=== PATIENT | female | born 1970 | race Caucasian/White ===

== ENCOUNTER → 2018-04-20 | Outpatient (CLI) | payer OTHER ==
[~2018-04-20] MED LIST: ADDERALL 30 MG30 MG PO; ASPIRIN CHEWABL81 MG PO; CARAFATE1 GM PO; COUMADIN5 M2 PO; Coumadin7.5 MG PO; KLONOPIN1 M1 PO; LOVENOX120 MG/0.8 SQ; NORCO 5-325 TA1 EACH PO; PRINIVIL10 MG PO; PROTONIX40 MG PO; PROZAC40 M1 PO; REMERON SOLTAB30 MG PO; SIMVASTATIN40 MG PO; Synthroid,Lev200 MCG PO; TRAZODONE100 MG PO; XARE20MG PO
[2018-04-20 15:17] LABS: INTERNATIONAL NORM RATIO 1.8 (2.0-3.5)
== END | disposition home or self-care (01) ==
LOC: RESCLI 00:56
PROVIDERS: Internal Medicine
DX: I25.10 Atherosclerotic heart disease of native coronary artery without angina pectoris (principal); D68.59 Other primary thrombophilia; E03.9 Hypothyroidism, unspecified; G43.119 Migraine with aura, intractable, without status migrainosus; G47.00 Insomnia, unspecified; N39.3 Stress incontinence (female) (male); D50.9 Iron deficiency anemia, unspecified; I10 Essential (primary) hypertension; E78.5 Hyperlipidemia, unspecified; F32.9 Major depressive disorder, single episode, unspecified; F90.9 Attention-deficit hyperactivity disorder, unspecified type; F41.9 Anxiety disorder, unspecified; Z79.899 Other long term (current) drug therapy; Z86.711 Personal history of pulmonary embolism; Z79.01 Long term (current) use of anticoagulants; Z79.82 Long term (current) use of aspirin

== ENCOUNTER 2018-12-04 15:03 | Inpatient (IN) | payer OTHER ==
[~2018-12-04] VITALS: Ht 172.7 cm; Wt 143.0 kg
--- NOTE | ~2018-12-04 | PR ---
[place], [place] PROGRESS NOTE NAME: DONALD ADAMS [facility] WITH [facility] #: [id number] UNIT #: [id number] ROOM: 503 DOCTOR: JAZMYN MEDRANO MD BIRTHDATE: [birth year] DOS: 12/07/2018 SUBJECTIVE: The patient developed sinus tachycardia last evening for which metoprolol was added. She is feeling much better. OBJECTIVE: VITAL SIGNS: Blood pressure 106/62, heart rate of 62 beats per minute, breathing 18 times per minute, temperature of 98 degrees Fahrenheit. GENERAL APPEARANCE: The patient is alert and oriented x 3, in no visible distress. Morbidly obese. HEENT AND NECK: Exam within normal limits. CARDIOVASCULAR SYSTEM: Heart rate is regular in rate and rhythm. S1 and S2 normally audible. LUNGS: Clear to auscultation. ABDOMEN: Soft, nontender. No obvious organomegaly. Bowel sounds are present. EXTREMITIES: Without significant cyanosis or edema. IMPRESSION: 1. The patient has sinus tachycardia, now controlled with addition of metoprolol to her treatment. 2. Chest pains from uncertain etiology. The patient tested with cardiac stress test, which was negative. Apparently, the patient has musculoskeletal pains for which we will treat her with NSAIDs. 3. Mild protein calorie malnutrition. The patient worked with Dietary. 4. Hypothyroidism, replaced with thyroid supplements. 5. Generalized anxiety disorder, is being treated and controlled. 6. The patient is anticoagulated with Coumadin for pulmonary embolism, but apparently she was not taking her Coumadin at home. The patient has been given 2 extra doses of Coumadin. I am trying to get her INR therapeutic between 2 and 3. INR was 1.2 today. 7. Moderate protein-calorie malnutrition. The patient worked with dietary. JAZMYN MEDRANO MD CM:PNTRANS [id number] JAZMYN MEDRANO MD 12/07/18 1005 interface
--- NOTE | ~2018-12-04 | PR ---
[place], [place] PROGRESS NOTE NAME: DONALD ADAMS [facility] #: [id number] UNIT #: [id number] ROOM: 503 DOCTOR: JAZMYN MEDRANO MD BIRTHDATE: [birth year] DOS: 12/04/2018 HISTORY OF PRESENT ILLNESS: The patient is a 48-year-old female with previous history of: 1. Coronary artery disease of the unga vessels. 2. Obesity. 3. Hypothyroidism. 4. Benign essential hypertension. 5. History of elevated alkaline phosphatase in the past. 6. ADHD. 7. Generalized anxiety disorder. 8. Major depression, recurrent, mild. 9. Hypothyroidism. 10. Chronic primary insomnia and vitamin D deficiency. The patient presented to my office yesterday as an outpatient and she started complaining of recurrent chest pain starting the same morning and also gave me a history of coronary artery disease in the past. REVIEW OF SYSTEMS: RESPIRATORY: No increasing shortness of breath. GASTROINTESTINAL: No nausea, vomiting, diarrhea, or constipation. CARDIOVASCULAR: Recurrent chest pains, which are sharp and precordial. FAMILY HISTORY: Noncontributory. HOME MEDICATIONS: Lisinopril, fluoxetine, metformin, levothyroxine, trazodone, Topamax, mirtazapine, Coumadin, Adderall, clonazepam. ALLERGIES: KNOWN ALLERGIES TO PENICILLIN, DROPERIDOL, COMPAZINE, NAPROSYN, TRAMADOL, REGLAN, ZOFRAN, TORADOL, AND SHELLFISH. PHYSICAL EXAMINATION: GENERAL: Alert, oriented x 3, morbidly obese, in no visible distress. VITAL SIGNS: Blood pressure 116/65, heart rate of 50 beats per minute, breathing 18 times per minute, and temperature 98 degrees Fahrenheit. HEENT AND NECK: Exam within normal limits. CARDIOVASCULAR SYSTEM: Heart rate is regular in rate and rhythm. S1 and S2 normally audible. LUNGS: Clear to auscultation. ABDOMEN: Morbidly obese. Soft, nontender. No obvious organomegaly. Bowel sounds are present. EXTREMITIES: Without significant cyanosis or edema. IMPRESSION AND PLAN: 1. The patient has history of coronary artery disease of the unga vessels with recurrent chest pains. The patient admitted to [facility] on a monitored bed and all cardiac enzymes have come out to be negative. The patient continues to have chest pain and Cardiology is on [place], [place] [facility]GR[id number] UN[facility] #: [id number] ROOM: 503 DOCTOR: JAZMYN MEDRANO MD BIRTHDATE: [birth year] consult. The patient is scheduled for a cardiac stress today, which she had to be canceled because she had no IV access. The test was postponed for tomorrow. 2. Mild protein calorie malnutrition with albumin level of 2.8. 3. Hypothyroidism, replaced with Synthroid, which was continued. Free T4, TSH levels were performed. 4. Generalized anxiety disorder, treated and controlled. 5. Major depression, recurrent, mild to moderate, treated and controlled. 6. Benign essential hypertension. Blood pressure is to be monitored and treated. 7. Previous history of pulmonary embolism for which the patient remains on Coumadin. INR is subtherapeutic, so I will give her double dose of Coumadin. I am not sure if the patient is taking a Coumadin at home appropriately. 8. Morbid obesity. The patient to work with Dietary. 9. Attention deficit disorder. The patient to be continued on Adderall. 10. Generalized anxiety disorder for which patient takes clonazepam at home, which was continued. JAZMYN MEDRANO MD CM:PNTRANS [id number] JAZMYN MEDRANO MD 12/06/18 0950 [email or web address]
--- NOTE | ~2018-12-04 | DS ---
[place], [place] DISCHARGE SUMMARY NAME: DONALD ADAMS [facility] #: [id number] UNIT #: [id number] ROOM: 503 DOCTOR: JAZMYN MEDRANO MD BIRTHDATE: [birth year] DOS: 12/06/2018 SUBJECTIVE: The patient with constant and recurrent chest pain, some chronic shortness of breath and significant anxiety, which continues. OBJECTIVE: GENERAL APPEARANCE: The patient is alert and oriented x 3, in no visible distress. VITAL SIGNS: Blood pressure 112/71, heart rate of 60 beats per minute, breathing 18 times per minute, temperature of 98 degrees Fahrenheit. The patient with morbid obesity. HEENT AND NECK: Exam within normal limits. CARDIOVASCULAR SYSTEM: Heart rate is regular in rate and rhythm. S1 and S2 normally audible. LUNGS: Clear to auscultation. ABDOMEN: Soft, nontender. No obvious organomegaly. Bowel sounds are present. EXTREMITIES: Without significant cyanosis or edema. IMPRESSION: The patient with recurrent chest pains with history of coronary artery disease, is undergoing cardiac stress testing today and if normal, she can be discharged back to the home. DISCHARGE DIAGNOSES: 1. Coronary artery disease of the cata[place] vessels. 2. Recurrent chest pain. 3. Obesity. 4. Hypothyroidism. 5. Benign essential hypertension. 6. Attention deficit hyperactive disorder. 7. Generalized anxiety disorder. 8. Major depression, recurrent, mild. 9. Hypothyroidism. 10. Chronic primary insomnia and vitamin D deficiency. The patient was admitted with recurrent chest pain when she presented to my office for the first time and told me that she has history of coronary artery disease on a heart catheterization in the past. The patient being obese and has hypertension with diabetes, is at high risk for coronary artery disease and [place], so she was admitted to the hospital to rule out for myocardial infarction. It was difficult to establish IV venous access on her and once she has good access today, so patient was taken for a cardiac stress test, results are not complete. Cardiolite scan still needs to be read by legal activity adjudicator and if normal, she will be discharged back to home to follow up with her PCP, Dr. Harrell in less than a week's time. 1. History of coronary artery disease of the cata[place]ba vessels with recurrent chest pain. 2. Mild protein-calorie malnutrition. The patient followed with Dietary. 3. Hypothyroidism, replaced with Synthroid. 4. Generalized anxiety disorder, treated and controlled. 5. Previous history of pulmonary embolism. The patient remains anticoagulated [place], [place] DISCHARGE SUMMARY NAME: DONALD ADAMS UNIT #: [id number] ROOM: [facility] DOCTOR: JAZMYN MEDRANO MD BIRTHDATE: [birth year] with Coumadin. The patient's INR was at baseline, so I am not sure if patient was actually taking her medications. The patient was given extra dose of Coumadin yesterday to make her INR therapeutic and she will continue her home dose of Coumadin at home. 6. Morbid obesity. The patient worked with Dietary. 7. Attention deficit disorder. The patient continued on Adderall. LABORATORY DATA: Vitamin B12 deficiency, folic acid deficiency, vitamin D deficiency. Albumin low at 2.8. Free T4 level is normal. Cardiac enzymes are all normal. DISCHARGE MANAGEMENT: Not to follow up with Dr. Harrell, but actually follow up with me in the office in less than a week. Lisinopril 10 mg a day, fluoxetine 40 mg a day, aspirin 81 mg a day, metformin 1000 mg b.i.d., levothyroxine 175 mcg daily, Lantus insulin 10 units subQ every night, trazodone 200 mg at bedtime, Topamax 100 mg b.i.d., mirtazapine 30 mg at bedtime, Coumadin 8 mg daily, Adderall 30 mg b.i.d., clonazepam 1 mg b.i.d. Follow up at the office with me in less than a week. JAZMYN MEDRANO MD CM:TERE [id number] JAZMYN MEDRANO MD 12/21/18 0903 interface
--- NOTE | ~2018-12-04 | CON ---
[place], [place] REPORT OF CONSULTATION NAME: DONALD ADAMS [facility] #: [id number] UNIT #: [id number] ROOM: 503 DOCTOR: BETTYE PETERSON MD BIRTHDATE: [birth year] DOS: 12/07/2018 CARDIOLOGY CONSULTATION REASON FOR CONSULTATION: Chest pain. HISTORY OF PRESENT ILLNESS: The patient is a 48-year-old patient with history of hypertension, morbid obesity, "myocardial infarction" about 7 years ago. The patient was admitted from Dr. Garza's office for her intermittent chest pains. She is complaining of on and off chest pains in the midsternal area, mostly at rest, occasional radiation to the left arm. She describes it as a heavy feeling, but again, the most of the symptoms comes at rest, but her main complaint is also exertional dyspnea. Apparently, she said that she lost about 70 pounds since last year with diet. There is no family at bedside; hence, history was obtained from the patient. She was admitted to the hospital and had a stress test, which was nonischemic, normal LV function, but the patient complains of on and off chest pains at rest, hence a Cardiology consult. She has history of pulmonary emboli, but apparently not taking Coumadin at home. She denies any PND or orthopnea. No nausea or vomiting. No fever and chills. No cough or hemoptysis. No palpitations or syncope. No bladder or bowel symptoms. Her main complaint is intermittent chest pains, which is a chronic complaint, but recently complaining of some exertional dyspnea despite losing 70 pounds. REVIEW OF SYSTEMS: Review of 10 systems negative except as mentioned above. The chest pains are mostly at rest with a midsternal area, last for a few seconds to minutes. She describes this as a heavy feeling, occasional radiation to the left arm, but no associated symptoms such as shortness of breath, nausea or diaphoresis. PAST MEDICAL HISTORY: 1. Hypertension. 2. Morbid obesity. 3. "Myocardial infarction" 7 years ago. 4. Anxiety and depression. 5. Hypothyroidism. 6. ADHD. 7. History of pulmonary emboli. SURGICAL HISTORY: History of cholecystectomy. FAMILY HISTORY: Noncontributory. HOME MEDICATIONS: Reviewed. ALLERGIES: Reviewed. PHYSICAL EXAMINATION: VITAL SIGNS: Blood pressure 106/62, pulse 62, respiratory rate 18, weight 143 kilos, BMI 47.9. [place], [place] REPORT OF CONSULTATION NAME: DONALD ADAMS UNIT #: [id number] ROOM: [facility] DOCTOR: NICHOLAS LOPES,BETTYE BIRTHDATE: [birth year] GENERAL: The patient was alert, slightly short of breath on oxygen by nasal cannula. HEAD AND NECK: Pupils are round and equal. No jaundice. Tongue was moist and pharynx clear. NECK: Supple and was thick, unable to assess the JVD, no carotid bruit. CHEST: Minimal tenderness on pressure in the midsternal area. LUNGS: A few scattered rhonchi, but fair air entry bilaterally. HEART: Regular rhythm, no S3. No significant murmurs, no palpable thrills. ABDOMEN: Morbidly obese. Bowel sounds normal. EXTREMITIES: Showed mostly nonpitting edema. Distal pulses are fair. SKIN: Warm and dry. No cyanosis, no clubbing. RECTAL: Deferred. GENITOURINARY: Deferred. NEUROLOGIC: The patient is alert with no focal neurologic deficit. PSYCHIATRIC: The patient is alert with good mood and affect. REVIEW OF DIAGNOSTIC TESTS: EKG, stress test, CBC, chemistries reviewed. Hemoglobin is 10. INR 1.2. IMPRESSION: 1. Chest pain, atypical, myocardial infarction ruled out. The patient had a nonischemic stress test yesterday with normal LV function. 2. History of questionable myocardial infarction about 7 years ago. Apparently, the patient had cardiac catheterization in [place], [place] and no angioplasty or stent was done. 3. Exertional dyspnea, multifactorial. 4. Hypertension. 5. History of pulmonary emboli. 6. Sinus tachycardia, responded to beta blockers last night. 7. Anemia. 8. Anxiety and depression. 9. Fatty liver. RECOMMENDATIONS: 1. Continue beta viola for blood pressure and sinus tachycardia last night. 2. I would get a 2D echo to assess her LV function and valvular function and right ventricular function. 3. If the patient continues to have symptoms, I would recommend to get a chest CT to rule out pulmonary emboli. 4. To wean off her oxygen. 5. The patient will need outpatient sleep study to rule out sleep apnea. 6. No family at bedside at the time of examination. 7. Risk factor modification for diet, exercise, and continued weight loss was discussed. 8. Other than 2D echo, no further cardiac testing recommended and the 2D echo can be done as outpatient if the patient is discharged today. 9. Above recommendations discussed with the patient and all questions were answered. [place], [place] REPORT OF CONSULTATION NAME: DONALD ADAMS UNIT #: [id number] ROOM: [facility] DOCTOR: BETTYE PETERSON MD BIRTHDATE: [birth year] BETTYE PETERSON MD CM:CONSTR:REPORT OF CONSULTATION 28 12/08/18 0007 interface
--- NOTE | ~2018-12-04 | WRIGHTHP ---
[place], [place] PATIENT HISTORY AND PHYSICAL EXAM NAME: DONALD ADAMS [facility] #: [id number] UNIT #: [id number] ROOM: 503 DOCTOR: JAZMYN MEDRANO MD BIRTHDATE: [birth year] DOS: 12/04/2018 HISTORY OF PRESENT ILLNESS: The patient is a 48-year-old female with previous history of: 1. Coronary artery disease of the pala vessels. 2. Obesity. 3. Hypothyroidism. 4. Benign essential hypertension. 5. History of elevated alkaline phosphatase in the past. 6. ADHD. 7. Generalized anxiety disorder. 8. Major depression, recurrent, mild. 9. Hypothyroidism. 10. Chronic primary insomnia and vitamin D deficiency. The patient presented to my office yesterday as an outpatient and she started complaining of recurrent chest pain starting the same morning and also gave me a history of coronary artery disease in the past. REVIEW OF SYSTEMS: RESPIRATORY: No increasing shortness of breath. GASTROINTESTINAL: No nausea, vomiting, diarrhea, or constipation. CARDIOVASCULAR: Recurrent chest pains, which are sharp and precordial. FAMILY HISTORY: Noncontributory. HOME MEDICATIONS: Lisinopril, fluoxetine, metformin, levothyroxine, trazodone, Topamax, mirtazapine, Coumadin, Adderall, clonazepam. ALLERGIES: KNOWN ALLERGIES TO PENICILLIN, DROPERIDOL, COMPAZINE, NAPROSYN, TRAMADOL, REGLAN, ZOFRAN, TORADOL, AND SHELLFISH. PHYSICAL EXAMINATION: GENERAL: Alert, oriented x 3, morbidly obese, in no visible distress. VITAL SIGNS: Blood pressure 116/65, heart rate of 50 beats per minute, breathing 18 times per minute, and temperature 98 degrees Fahrenheit. HEENT AND NECK: Exam within normal limits. CARDIOVASCULAR SYSTEM: Heart rate is regular in rate and rhythm. S1 and S2 normally audible. LUNGS: Clear to auscultation. ABDOMEN: Morbidly obese. Soft, nontender. No obvious organomegaly. Bowel sounds are present. EXTREMITIES: Without significant cyanosis or edema. IMPRESSION AND PLAN: 1. The patient has history of coronary artery disease of the pala vessels with recurrent chest pains. The patient admitted to [facility] on a monitored bed and all cardiac enzymes have come out to be negative. The patient continues to have chest pain and Cardiology is on [place], [place] PATIENT HISTORY AND PHYSICAL EXAM [facility]: [id number] #: [id number] ROOM: 503 DOCTOR: MITCHELL LOPES,JAZMYN Cortez BIRTHDATE: [birth year] consult. The patient is scheduled for a cardiac stress today, which she had to be canceled because she had no IV access. The test was postponed for tomorrow. 2. Mild protein calorie malnutrition with albumin level of 2.8. 3. Hypothyroidism, replaced with Synthroid, which was continued. Free T4, TSH levels were performed. 4. Generalized anxiety disorder, treated and controlled. 5. Major depression, recurrent, mild to moderate, treated and controlled. 6. Benign essential hypertension. Blood pressure is to be monitored and treated. 7. Previous history of pulmonary embolism for which the patient remains on Coumadin. INR is subtherapeutic, so I will give her double dose of Coumadin. I am not sure if the patient is taking a Coumadin at home appropriately. 8. Morbid obesity. The patient to work with Dietary. 9. Attention deficit disorder. The patient to be continued on Adderall. 10. Generalized anxiety disorder for which patient takes clonazepam at home, which was continued. JAZMYN MEDRANO MD CM:HISPHYS:PATIENT HISTORY AND PHYSICAL EXAMINATION 1103 [id number] JAZMYN MEDRANO MD 12/06/18 0946 interface
--- NOTE | ~2018-12-04 | ST ---
[place], [place] EXERCISE STRESS TEST REPORT [facility] [id number] UNIT #: [id number] ROOM: 503 DOCTOR: MITCHELL LOPES,JAZMYN Cortez BIRTHDATE: [birth year] DOS: 12/06/2018 LEXISCAN CARDIOLITE TRESS TEST The patient presently admitted to [facility] for recurrent chest pains with negative cardiac enzymes. The patient was injected with Lexiscan 0.4 mg and followed 40 seconds later by Cardiolite injection. The patient's baseline EKG showed normal sinus rhythm with some nonspecific ST-T abnormality in anterior leads with slight intraventricular conduction delay. Right bundle branch block pattern. No significant ST-T abnormality otherwise. During the Lexiscan injection and recovery phase, the patient did not develop any significant angina symptoms. No significant cardiac dysrhythmias or EKG changes were observed on the monitor worker. IMPRESSION: Normal EKG part of the Lexiscan Cardiolite stress test. Cardiolite studies to be reported later today by Dr. Molina, the band scroll saw operator. JAZMYN MEDRANO MD CM:STRESS:EXERCISE STRESS TEST REPORT [id number] JAZMYN MEDRANO MD
[~2018-12-04 15:03] MED LIST changes: +BASAG SOL SQ; +GLUCOPHAGE1000 MG PO; +TOPAMAX100 M1 PO; +WARFARIN SODIUM4 MG PO
[2018-12-04 16:00] VITALS: BP 126/71
--- NOTE | 2018-12-04 16:10 | NUR ---
A 48YO FEMALE, admitted to , under the services of Dr. MITCHELL LOPES,JAZMYN Cortez with a diagnosis of CHEST PAIN/CAD. Chief complaint is MIDSTERNAL CHEST PAIN RADIATING TO LEFT ARM SINCE THIS MORNING, ALSO NAUSEA AND SHORTNESS OF BREATH. Patient arrived via WHEELCHAIR from [place]. Monitor applied. Initial assessment completed. Vital signs taken and recorded. DR. MITCHELL LOPES,JAZMYN Cortez notified of admission to the unit. Orders received. See assessment for past medical history, medications and allergies. Patient and/or family oriented to unit. [facility] visitation policy reviewed. Clothing/patient valuable form completed. LATRICIA MANNING
[2018-12-04] MEDS ORDERED: SYNTHROID,LEV175 MCG PO (16:20)
--- NOTE | 2018-12-04 16:23 | NUR ---
MED REC UPDATED/CORRECTED USING INFORMATION PROVIDED BY THE PATIENT.
[2018-12-04 18:29] LABS: INTERNATIONAL NORM RATIO 0.9 (2.0-3.5)
[2018-12-04 20:00] VITALS: BP 138/76
--- NOTE | 2018-12-04 21:24 | NUR ---
SPOKE WITH DR. MEDRANO REGARDING PATIENTS CONT CHEST PAIN. THE ORDERED 2MG MORPHINE IV TO BE GIVEN ONCE. IF PAIN DOES NOT RESIDE THE REQUESTED FOR A CARDIAC CONSULT.
--- NOTE | 2018-12-04 22:42 | NUR ---
PATIENT IS SLEEPING AT THIS TIME. MORPHINE SEEMS TO BE EFFECTIVE.
[2018-12-05] VITALS: BP 123/72
[2018-12-05 03:17] VITALS: BP 132/72
[2018-12-05 06:56] LABS: BASO % 0.2 % (0.0-1.0); EOS # 0.3 10*3/uL (0.0-0.4); EOS % 4.9 % (1.0-4.0); HEMATOCRIT 32.1 % (37.0-47.0); LYMPH # 1.5 10*3/uL (1.3-4.4); LYMPH % 26.6 % (27.0-41.0); MEAN CORPUSCULAR HGB 28.7 pg (27.0-31.0); MEAN CORPUSCULAR HGB CONC 31.2 g/dl (33.0-37.0); MEAN PLATELET VOLUME 10.1 fl (9.6-12.3); MONO # 0.4 10*3/uL (0.1-1.0); MONO % 6.9 % (3.0-9.0); NEUT # 3.4 10*3/uL (2.3-7.9); PLATELET COUNT AUTOMATED 219 10*3/uL (130-400); RED BLOOD COUNT 3.49 10*6/uL (4.10-5.10); RED CELL DISTRI WIDTH 14.3 % (0-14.5); WHITE BLOOD COUNT 5.5 10*3/uL (4.8-10.8)
[2018-12-05 07:17] LABS: INTERNATIONAL NORM RATIO 0.9 (2.0-3.5)
[2018-12-05 07:22] LABS: ALBUMIN 2.8 gm/dl (3.1-4.5); BUN 10 mg/dl (7-24); CHLORIDE 112 mmol/L (98-107); POTASSIUM 3.7 mmol/L (3.5-5.1); SODIUM 144 mmol/L (136-145)
[2018-12-05 07:31] LABS: ALKALINE PHOSPHATASE 95 U/L (45-117); CHOLESTEROL 151 mg/dL (<200); CREATININE 0.95 mg/dL (0.55-1.02); FREE T4 0.93 ng/dl (0.76-1.46); HDL CHOLESTEROL 35 mg/dl (40-60); LDL CHOLESTEROL 75 mg/dL (9-159); SGOT/AST 10 IU/L (3-35); SGPT/ALT 28 U/L (12-78); THYROID STIM HORMONE (HS) 0.134 uIU/ml (0.358-4.75); TOTAL PROTEIN 5.6 gm/dL (6.4-8.2); TRIGLYCERIDES 207 mg/dl (<150); VLDL CHOLESTEROL 41 mg/dL (6-40)
[2018-12-05 07:52] LABS: VITAMIN D, 25-HYDROXY 16.4 ng/mL (30-100)
[2018-12-05 08:00] VITALS: BP 116/65
--- NOTE | 2018-12-05 09:00 | NUR ---
Drop Forger Helper in to talk to patient. Patient states lives at home with her daughter's ex-in-laws. There are 33 steps in the home. Physician: Dr. Telly Garza Pharmacy: [facility] Home health services: none Patient's level of ADLs: INDEPENDENT Patient has working utilities: yes DME: she would like a glucometer for home, pharmacy notified Follow-up physician's appointment after d/c: she prefers to make her own follow up appt after discharge Does patient want to access PORTAL?: no Discharge plan discussed with patient. She lives at home with her daughter's ex-in-laws. She is independent in her ADLs and ambulation. Discussed home health care services and she denies any home needs at this time. When medically stable she will be discharged to home. She states she will call her insurance on discharge for transport home. JAQUAN SAAB
--- NOTE | 2018-12-05 09:23 | NUR ---
CATH-GALINA ADMINISTERED TO OCCLUDED MEDIPORT AT 0845; LINE NOT YET FLUSHING AT ALL; CARDIAC REHAB IS AWARE. DR. MEDRANO HAS STRESS TEST SCHEDULED FOR THE PATIENT AT 0930.
--- NOTE | 2018-12-05 10:02 | NUR ---
MEDIPORT REMAINS OCCLUDED, CATH-FLOW TO REMAIN IN PLACE 45 MORE MINUTES. STRESS TEST RESCHEDULED FOR TOMORROW, RESUMING MEDS AND DIET TODAY.
--- NOTE | 2018-12-05 11:15 | NUR ---
MEDIPORT STILL OCCLUDED AFTER CATH-GALINA ADMINISTERED. REMOVED NEEDLE, WILL RESTART THE SITE WITH NEW NEEDLE.
[2018-12-05 12:00] VITALS: BP 141/91
--- NOTE | 2018-12-05 12:00 | NUR ---
PRN PO BENADRY WAS SOMEWHAT EFFECTIVE, PER PATIENT.
[2018-12-05 16:00] VITALS: BP 138/70
--- NOTE | 2018-12-05 16:57 | NUR ---
MEDICATED WITH PRN PO BENADRYL FOR NAUSEA AT THIS TIME.
--- NOTE | 2018-12-05 19:00 | NUR ---
INFORMED BY PRIOR NURSE LATRICIA-RN THAT IS AWARE THAT PATIENT IS STILL HAVING PAIN AND NAUSEA AND DOES NOT WISH TO CHANGE CURRENT MEDICATION REGIMEN.
[2018-12-05 20:00] VITALS: BP 110/65
--- NOTE | 2018-12-05 22:24 | NUR ---
PATIENT MEDICATED WITH BENADRYL FOR C/O NAUSEA. WILL MONITOR
[2018-12-06] VITALS: BP 112/71
--- NOTE | 2018-12-06 01:19 | NUR ---
24 HR chart check completed.
--- NOTE | 2018-12-06 08:00 | NUR ---
Pool Manager in to see patient. No new needs or request at this time. She is awaiting to go for her stress test. She denies any home needs. When medically stable she will be discharged to home.
--- NOTE | 2018-12-06 10:11 | NUR ---
INFORMED CONSENT SIGNED FOR LEXISCAN STRESS TEST WITH DR. MEDRANO. RESTING EKG NSR, HR 69, BP 124/74. PULSE OX 99% AND LUNGS CLEAR. COMPLETED ONE MINUTE OF LEXISCAN PROTOCOL RECEIVING LEXISCAN 0.4MG OVER 10 SECONDS. NO ARRHYTMIAS OR ST CHANGES NOTED. PT C/O BREATHLESSNESS AND CHEST PRESSURE. LAST RECOVERY HR 77, BP 94/64. WAITING NUCLEAR SCANNING IN STABLE CONDITION.
--- NOTE | 2018-12-06 10:32 | NUR ---
Pt remains nauseated after being given Lexiscan. Dr Garza present and ordered a one time dose of Phenergan. Medicated as ordered. Will monitor.
--- NOTE | 2018-12-06 11:16 | NUR ---
Pt completed scanning. Voiced nausea improving. Was able to eat crackers and take some coke. Report called to Bethany VALLE.
[2018-12-06 12:00] VITALS: BP 122/59
[2018-12-06 16:00] VITALS: BP 115/64
--- NOTE | 2018-12-06 16:22 | NUR ---
Dr. Garza contacted regarding patients c/o nausea. See new orders.
--- NOTE | 2018-12-06 16:23 | NUR ---
Dr. Garza notified of patient c/o chest pain.
--- NOTE | 2018-12-06 16:35 | NUR ---
Dr. Garza notified of patient irregular heart rate. See new orders.
--- NOTE | 2018-12-06 16:53 | NUR ---
Spoke with Dr. Brandt regarding consult and patients current status along with medications, recent vitals. See new orders. Physician to follow up at bedside.
--- NOTE | 2018-12-06 18:08 | NUR ---
Phenergan given for patient c/o nausea. Will monitor.
[2018-12-06 18:12] LABS: INTERNATIONAL NORM RATIO 1.2 (2.0-3.5)
[2018-12-06 20:00] VITALS: BP 123/74
[2018-12-07] VITALS: BP 102/63
--- NOTE | 2018-12-07 03:40 | NUR ---
24 HR chart check completed.
--- NOTE | 2018-12-07 05:24 | NUR ---
PATIENT MEDICATED WITH BENADRYL PER PRN ORDER FOR C/O NAUSEA. SEE EMAR. REINFORCED USE OF CALL LIGHT.
[2018-12-07 08:45] VITALS: BP 106/62
--- NOTE | 2018-12-07 09:00 | NUR ---
Shelving Supervisor in to see patient. No new needs or request at this time. Assisted with ambulation to the bathroom and back to bed. WILSON. Once in bed her resps became even and unlabored. When medically stable she will be discharged to home.
[2018-12-07] MEDS ORDERED: DIPHENHYDRAMINE25 M2 PO (09:54)
[2018-12-07] MEDS ORDERED: LOPRESSOR25 MG PO (09:54)
--- NOTE | 2018-12-07 10:42 | NUR ---
Patient requested Phenergan along with the Benadryl. She states "it seems to work best like that." Patient appeared drowsy. I explained I didn't feel comfortable giving her phenergan at this time due to all the scheduled medications the patient just recieved. I explained the side effects of the medications she just recieved. I offered chandan arielle for nausea but she refused. Patient was cooperative. Will continue to monitor.
--- NOTE | 2018-12-07 12:37 | NUR ---
MEDICATED WITH PO PHENERGAN PER ORDER AND REQUEST.
--- NOTE | 2018-12-07 15:15 | NUR ---
Discharge instructions reviewed with patient/family. Patient receptive and verbalizes understanding. Follow-up care arranged. Written instructions given to patient/family. FREDERICK BARRERA
--- NOTE | 2018-12-10 12:37 | NUR ---
Attempted to reach patient at Dr. Garza's request for patient to come to ER to have a spiral CT completed to rule out PE at [phone] with no success as it rings busy after 5 attempts. Attempted to call [place] person to notify, at [phone] with no success. Unable to leave message as mailbox is full. No other phone numbers in patient's chart to call.
== END 2018-12-07 15:15 | disposition home or self-care (01) | DRG 303 ==
LOC: 5E 15:03
PROVIDERS: ADMIT Internal Medicine
PROC: 4A02XM4 Measurement of Cardiac Total Activity, External Approach (ICD-10-PCS; principal; 2018-12-06)
PROC: 3E073KZ Introduction of Other Diagnostic Substance into Coronary Artery, Percutaneous Approach (ICD-10-PCS; 2018-12-06)
DX: I25.10 Atherosclerotic heart disease of native coronary artery without angina pectoris (principal); Z68.42 Body mass index [BMI] 45.0-49.9, adult; E44.0 Moderate protein-calorie malnutrition; R07.89 Other chest pain; E03.9 Hypothyroidism, unspecified; F90.9 Attention-deficit hyperactivity disorder, unspecified type; F41.1 Generalized anxiety disorder; F32.9 Major depressive disorder, single episode, unspecified; E55.9 Vitamin D deficiency, unspecified; G47.00 Insomnia, unspecified; Z86.711 Personal history of pulmonary embolism; E66.01 Morbid (severe) obesity due to excess calories; K76.0 Fatty (change of) liver, not elsewhere classified; I25.2 Old myocardial infarction

== ENCOUNTER 2019-01-18 10:22 | Emergency (ER) | payer OTHER ==
[~2019-01-18] VITALS: Ht 172.7 cm; Wt 145.1 kg
[~2019-01-18 10:22] MED LIST changes: -PREDNISONE20 M1 PO; -ROBAXIN500 M1 PO
[2019-01-18] MEDS ORDERED: PREDNISONE20 M1 PO (10:55)
[2019-01-18] MEDS ORDERED: ROBAXIN500 M1 PO (10:55)
[2019-01-18] MEDS ORDERED: NORCO 5-325 TA1 EACH PO (12:38)
== END 2019-01-18 12:50 | disposition home or self-care (01) ==
LOC: ED 10:22
DX: S33.5XXA Sprain of ligaments of lumbar spine, initial encounter (principal); M54.41 Lumbago with sciatica, right side; M54.6 Pain in thoracic spine; Z88.0 Allergy status to penicillin; Z88.8 Allergy status to other drugs, medicaments and biological substances; Z88.6 Allergy status to analgesic agent; Z91.013 Allergy to seafood; Z79.899 Other long term (current) drug therapy; Z79.82 Long term (current) use of aspirin; Z79.01 Long term (current) use of anticoagulants; Z90.710 Acquired absence of both cervix and uterus; Z90.49 Acquired absence of other specified parts of digestive tract; V89.2XXA Person injured in unspecified motor-vehicle accident, traffic, initial encounter; Y93.89 Activity, other specified; Y92.488 Other paved roadways as the place of occurrence of the external cause; Y99.8 Other external cause status

== ENCOUNTER → 2019-01-18 | Outpatient (CLI) | payer OTHER ==
[~2019-01-18] MED LIST changes: +DIPHENHYDRAMINE25 M2 PO; +LOPRESSOR25 MG PO; +PREDNISONE20 M1 PO; +ROBAXIN500 M1 PO; +SYNTHROID,LEV175 MCG PO
--- NOTE | 2019-01-18 10:15 | NUR ---
1010- MEDIPORT ACCESSED WITH NON-CORING NEEDLE AFTER CLEANSING WITH CHLORAPREP. 10CC OF BLOOD DISCARDED. TUBES SUPPLIED BY LAB FILLED AND SENT TO LAB VIA TUBE TRANSPORT SYSTEM. PORT FLUSHED PER POLICY AND NON-CORING NEEDLE REMOVED INTACT. 2X2 APPLIED TO SITE.
[2019-01-18 11:01] LABS: BASO % 0.1 % (0.0-1.0); EOS # 0.2 10*3/uL (0.0-0.4); EOS % 3.5 % (1.0-4.0); HEMATOCRIT 31.4 % (37.0-47.0); HEMOGLOBIN 9.7 g/dl (12.0-16.0); LYMPH # 1.1 10*3/uL (1.3-4.4); LYMPH % 15.4 % (27.0-41.0); MEAN CELL VOLUME 90.5 fl (81.0-99.0); MEAN CORPUSCULAR HGB CONC 30.9 g/dl (33.0-37.0); MEAN PLATELET VOLUME 10.1 fl (9.6-12.3); MONO # 0.4 10*3/uL (0.1-1.0); MONO % 5.8 % (3.0-9.0); NEUT # 5.2 10*3/uL (2.3-7.9); NEUT % 74.9 % (47.0-73.0); PLATELET COUNT AUTOMATED 259 10*3/uL (130-400); RED BLOOD COUNT 3.47 10*6/uL (4.10-5.10); WHITE BLOOD COUNT 6.9 10*3/uL (4.8-10.8)
[2019-01-18 11:25] LABS: ALBUMIN 3.4 gm/dl (3.1-4.5); BUN 15 mg/dl (7-24); CHLORIDE 111 mmol/L (98-107); CHOLESTEROL 118 mg/dL (<200); POTASSIUM 3.5 mmol/L (3.5-5.1); SODIUM 141 mmol/L (136-145)
[2019-01-18 11:35] LABS: ALKALINE PHOSPHATASE 107 U/L (45-117); CREATININE 0.98 mg/dL (0.55-1.02); FREE T4 1.21 ng/dl (0.76-1.46); HDL CHOLESTEROL 30 mg/dl (40-60); LDL CHOLESTEROL 47 mg/dL (9-159); SGOT/AST 5 IU/L (3-35); SGPT/ALT 13 U/L (12-78); THYROID STIM HORMONE (HS) 0.436 uIU/ml (0.358-4.75); TOTAL PROTEIN 6.6 gm/dL (6.4-8.2); TRIGLYCERIDES 205 mg/dl (<150); VLDL CHOLESTEROL 41 mg/dL (6-40)
[2019-01-18 11:38] LABS: VITAMIN D, 25-HYDROXY 20.4 ng/mL (30-100)
== END | disposition home or self-care (01) ==
LOC: LAB 09:24
PROVIDERS: Internal Medicine
DX: Z00.00 Encounter for general adult medical examination without abnormal findings (principal); E78.2 Mixed hyperlipidemia; I25.10 Atherosclerotic heart disease of native coronary artery without angina pectoris; E11.9 Type 2 diabetes mellitus without complications; E03.9 Hypothyroidism, unspecified

== ENCOUNTER 2019-05-03 10:35 | Inpatient (IN) | payer OTHER ==
[~2019-05-03] VITALS: Ht 172.7 cm; Wt 132.7 kg
[~2019-05-03 10:35] MED LIST changes: +PREDNISONE20 M1 PO; +ROBAXIN500 M1 PO
[2019-05-03 10:58] VITALS: BP 111/69
[2019-05-03 11:05] LABS: BASO % 0.1 % (0.0-1.0); EOS # 0.2 10*3/uL (0.0-0.4); EOS % 2.3 % (1.0-4.0); HEMATOCRIT 30.1 % (37.0-47.0); HEMOGLOBIN 9.1 g/dl (12.0-16.0); LYMPH # 1.5 10*3/uL (1.3-4.4); LYMPH % 19.8 % (27.0-41.0); MEAN CELL VOLUME 85.8 fl (81.0-99.0); MEAN CORPUSCULAR HGB 25.9 pg (27.0-31.0); MEAN CORPUSCULAR HGB CONC 30.2 g/dl (33.0-37.0); MEAN PLATELET VOLUME 9.5 fl (9.6-12.3); MONO # 0.4 10*3/uL (0.1-1.0); MONO % 5.3 % (3.0-9.0); NEUT # 5.3 10*3/uL (2.3-7.9); NEUT % 72.2 % (47.0-73.0); PLATELET COUNT AUTOMATED 280 10*3/uL (130-400); RED BLOOD COUNT 3.51 10*6/uL (4.10-5.10); RED CELL DISTRI WIDTH 17.2 % (0-14.5); WHITE BLOOD COUNT 7.4 10*3/uL (4.8-10.8)
--- NOTE | 2019-05-03 11:12 | NUR ---
REPORT RECIEVED FROM NIA VALLE.
[2019-05-03 11:15] LABS: ACT PARTIAL THROMBO TIME 33.9 SECONDS (20.0-32.1); INTERNATIONAL NORM RATIO 1.1 (2.0-3.5)
[2019-05-03 11:21] LABS: ALBUMIN 3.4 gm/dl (3.1-4.5); ALKALINE PHOSPHATASE 93 U/L (45-117); BUN 17 mg/dl (7-24); CHLORIDE 115 mmol/L (98-107); CREATININE 1.11 mg/dL (0.55-1.02); POTASSIUM 3.5 mmol/L (3.5-5.1); SGOT/AST 9 IU/L (3-35); SGPT/ALT 16 U/L (12-78); SODIUM 145 mmol/L (136-145); TOTAL PROTEIN 6.7 gm/dL (6.4-8.2)
[2019-05-03 11:25] LABS: TROPONIN I < 0.015 ng/ml (<0.045)
[2019-05-03 11:33] VITALS: BP 115/61
[2019-05-03 12:27] VITALS: BP 136/80
--- NOTE | 2019-05-03 12:31 | NUR ---
PT IS RESTING IN BED. VS STABLE. SHE IS WTCHING TV AND WAS PROVIDED WARM BLANKET. NO SIGNS OF ACUTE DISTRESS AT THIS POINT. BED IS IN LOW POSITION. WILL CONTINUE TO MONITOR.
[2019-05-03 13:50] VITALS: BP 121/61
--- NOTE | 2019-05-03 13:50 | NUR ---
A 48, admitted to 4E, under the services of CHRIS Marley DO with a diagnosis of CHEST PAIN. Chief complaint is CHEST PAIN MID STERNUM TO LEFT ARM. Patient arrived via stretcher from ER. Monitor applied. Initial assessment completed. Vital signs taken and recorded. CHRIS MARLEY DO notified of admission to the unit. Orders received. See assessment for past medical history, medications and allergies. Patient and/or family oriented to unit. [facility]. visitation policy reviewed. Clothing/patient valuable form completed. JOSEF CHEEK
--- NOTE | 2019-05-03 16:47 | NUR ---
PATIENT MEDICATED WITH NORCO FOR PAIN RATING 7/10 CHEST AND LEFT SHOULDER PAIN
--- NOTE | 2019-05-03 17:47 | NUR ---
MINIMAL RELEIF WITH NORCO GIVEN X 1 HOUR AGO
--- NOTE | 2019-05-03 18:32 | NUR ---
PATIENT CONTINUES TO C/O OF CHEST PAIN 11/21 MEDICATED WITH [id number] 2MG ORDERED.
--- NOTE | 2019-05-03 19:30 | NUR ---
GOOD RELIEF FROM MORPHINE GIVEN RATES PAIN 4/10
[2019-05-03 20:00] VITALS: BP 107/67
--- NOTE | 2019-05-03 22:30 | NUR ---
PATIENT'S HR LOW 30'S TO MID 40'S. NOTIFIED DR FULLER. ORDERS RECIEVED TO ORDER A STAT EKG.
--- NOTE | 2019-05-03 23:20 | NUR ---
PATIENT'S HR 40. PATIENT WAS REQUESTING MORPHINE. NOTIFIED DR THAPA OF EKG RESULTS AND HEART RATE. DR THAPA STATED TO GO AHEAD AND GIVE THE PATIENT MORPHINE PER PATIENT REQUEST.
--- NOTE | 2019-05-03 23:30 | NUR ---
MORPHINE GIVEN PER PATIENT REQUEST FOR BACK PAIN RATED 9/10. WILL ASSESS EFFECTIVENESS.
[2019-05-04] VITALS: BP 104/65
--- NOTE | 2019-05-04 02:46 | NUR ---
Patient resting quietly with no c/o discomfort. Respirations easy and regular. Vital signs stable. No overt distress. CHRISTINA NAQVI
--- NOTE | 2019-05-04 04:54 | NUR ---
MORPHINE GIVEN PER PATIENT REQUEST FOR COMPLAINTS OF PAIN IN HER BACK AND SHOULDERS RATED 9/10. WILL ASSESS EFFECTIVENESS.
[2019-05-04 06:44] LABS: BASO % 0.2 % (0.0-1.0); EOS # 0.2 10*3/uL (0.0-0.4); EOS % 3.2 % (1.0-4.0); HEMATOCRIT 31.4 % (37.0-47.0); HEMOGLOBIN 9.4 g/dl (12.0-16.0); LYMPH # 1.4 10*3/uL (1.3-4.4); LYMPH % 23.7 % (27.0-41.0); MEAN CELL VOLUME 86.5 fl (81.0-99.0); MEAN CORPUSCULAR HGB 25.9 pg (27.0-31.0); MEAN CORPUSCULAR HGB CONC 29.9 g/dl (33.0-37.0); MEAN PLATELET VOLUME 9.7 fl (9.6-12.3); MONO # 0.3 10*3/uL (0.1-1.0); MONO % 5.3 % (3.0-9.0); NEUT % 67.4 % (47.0-73.0); PLATELET COUNT AUTOMATED 233 10*3/uL (130-400); RED BLOOD COUNT 3.63 10*6/uL (4.10-5.10); RED CELL DISTRI WIDTH 17.1 % (0-14.5); WHITE BLOOD COUNT 5.9 10*3/uL (4.8-10.8)
[2019-05-04 07:15] LABS: BUN 13 mg/dl (7-24); CHLORIDE 115 mmol/L (98-107); CHOLESTEROL 118 mg/dL (<200); CREATININE 1.01 mg/dL (0.55-1.02); HDL CHOLESTEROL 37 mg/dl (40-60); LDL CHOLESTEROL 51 mg/dL (9-159); POTASSIUM 3.3 mmol/L (3.5-5.1); SODIUM 145 mmol/L (136-145); TRIGLYCERIDES 150 mg/dl (<150); VLDL CHOLESTEROL 30 mg/dL (6-40)
[2019-05-04 07:37] LABS: INTERNATIONAL NORM RATIO 1.2 (2.0-3.5)
[2019-05-04 08:54] LABS: VITAMIN D, 25-HYDROXY 17.2 ng/mL (30-100)
--- NOTE | 2019-05-04 09:19 | NUR ---
Medicated with morphine at 0913 per prn order for complaints of left sided chest pain. States pain is 5/10. Medicated with bendryl at this time for c/o nausea.
--- NOTE | 2019-05-04 10:00 | NUR ---
States morphine and bendryl effective.
[2019-05-04 12:00] VITALS: BP 127/63
[2019-05-04] MEDS ORDERED: COUMADIN10 M1 PO (12:40)
--- NOTE | 2019-05-04 13:21 | NUR ---
Pt c/o pain to left chest and left arm. Denies SOB. Also complaining of nausea after eating. States she was nauseated before she ate but ate anyway thinking it may have helped. Medicated with morphine iv per prn order for pain and pepcid requested from pharmacy.
--- NOTE | 2019-05-04 13:34 | NUR ---
Pepcid given when obtained from pharmacy for c/o nausea.
--- NOTE | 2019-05-04 14:40 | NUR ---
Dr. Bush in and states that pt can be discharged from his standpoint. Dr. Post was notified.
--- NOTE | 2019-05-04 15:05 | NUR ---
Dr. Schaefer called and states that pt had asked for pain medication for dc and that he spoke with Dr. Post and he states to use OTC motrin or tylenol. States there is no indication for opiates.
--- NOTE | 2019-05-04 15:21 | NUR ---
Discharge instructions reviewed with patient. Patient receptive and verbalizes understanding. Follow-up care arranged. Written instructions given to patient. Follow up monitoring for INR given. Script for coumadin given and pt asked about pain medications. Notified her that Dr. Schaefer resident states that Dr. Post states to use tylenol and motrin OTC. Mediport needle removed.
[2019-05-04 16:00] VITALS: BP 112/61
[2019-05-04 20:00] VITALS: BP 113/73
--- NOTE | 2019-05-04 21:30 | NUR ---
PT REPORTS [employer]ANCE [employer] STATES THEY WILL BE ABLE TO PROVIDE HER A RIDE FROM 8-10 AM. PATIENT LIVES IN [place]
[2019-05-05] VITALS: BP 119/64
--- NOTE | 2019-05-05 10:00 | NUR ---
MEDICATED WITH PRN BENADRYL PER ORDER AND REQUEST.
--- NOTE | 2019-05-05 10:05 | NUR ---
PT WAITING FOR RIDE FOR DISCHARGE.
--- NOTE | 2019-05-05 10:53 | NUR ---
PT C/O CHEST DISCOMFORT FROM BLOOD CLOTS PER PT. NO SIGNS OF ACUTE DISTRESS NOTED. MEDICATED WITH NORCO PO PER PRN ORDER, SEE EMAR. RATES PAIN 8 ON PAIN SCALE 0-10. CALL LIGHT IN REACH.
[2019-05-05 12:00] VITALS: BP 134/95
--- NOTE | 2019-05-05 12:00 | NUR ---
RESTING IN BED WAITING FOR RIDE. STATES MEDICATION WAS EFFECTIVE. NO C/O AT THIS TIME. CALL LIGHT IN REACH.
--- NOTE | 2019-05-05 15:00 | NUR ---
PHYSICAL THERAPY PT SCREEN COMPLETED TODAY; BASED ON SCREEN PATIENT DOES NOT NEED PT SERVICES AT THIS TIME SHE IS UP AND MOBILE AND MOVING ABOUT ROOM WITHOUT ISSUES. THANK YOU FOR REFERRAL DOMINGUEZ PERLA PT
--- NOTE | 2019-05-05 16:50 | NUR ---
PT STATES RIDE IS ONE HOUR AWAY.
--- NOTE | 2019-05-05 19:25 | NUR ---
PT ESCORTED VIA WHEELCHAIRFOR DISCHARGE.
== END 2019-05-05 19:37 | disposition home or self-care (01) | DRG 198 ==
LOC: ED 10:35 → EDHOLD 13:17 → 4E 14:38
PROVIDERS: Emergency Medicine; ADMIT Internal Medicine
DX: I25.119 Atherosclerotic heart disease of native coronary artery with unspecified angina pectoris (principal); E44.1 Mild protein-calorie malnutrition; F41.9 Anxiety disorder, unspecified; E66.01 Morbid (severe) obesity due to excess calories; D64.9 Anemia, unspecified; E87.8 Other disorders of electrolyte and fluid balance, not elsewhere classified; I10 Essential (primary) hypertension; E03.9 Hypothyroidism, unspecified; D68.59 Other primary thrombophilia; E87.6 Hypokalemia; E11.9 Type 2 diabetes mellitus without complications; F32.9 Major depressive disorder, single episode, unspecified; F90.9 Attention-deficit hyperactivity disorder, unspecified type; Z68.41 Body mass index [BMI] 40.0-44.9, adult; Z86.711 Personal history of pulmonary embolism; Z88.8 Allergy status to other drugs, medicaments and biological substances; Z88.6 Allergy status to analgesic agent; Z88.0 Allergy status to penicillin; Z91.013 Allergy to seafood; Z90.710 Acquired absence of both cervix and uterus; Z90.49 Acquired absence of other specified parts of digestive tract; Z82.49 Family history of ischemic heart disease and other diseases of the circulatory system; I25.2 Old myocardial infarction; Z86.718 Personal history of other venous thrombosis and embolism; Z79.01 Long term (current) use of anticoagulants; Z79.82 Long term (current) use of aspirin; Z79.899 Other long term (current) drug therapy

== ENCOUNTER 2019-10-23 12:40 | Observation (INO) | payer OTHER ==
[~2019-10-23] VITALS: Ht 173 cm; Wt 142.0 kg
[~2019-10-23 12:40] MED LIST changes: +COUMADIN10 M1 PO
[2019-10-23 13:02] VITALS: BP 129/66
--- NOTE | 2019-10-23 13:03 | NUR ---
THE PS02 WAS 86 ON ROOM AIR. SHE WAS PLACED ON 2LT 02 VIA NC. HER PSO2 INCREASED TO 98%
[2019-10-23 13:13] VITALS: BP 129/66
[2019-10-23 13:27] LABS: BASO % 0.4 % (0.0-1.0); EOS # 0.1 10*3/uL (0.0-0.4); EOS % 2.4 % (1.0-4.0); LYMPH # 1.1 10*3/uL (1.3-4.4); LYMPH % 19.6 % (27.0-41.0); MEAN CELL VOLUME 87.1 fl (81.0-99.0); MEAN CORPUSCULAR HGB 25.8 pg (27.0-31.0); MEAN CORPUSCULAR HGB CONC 29.7 g/dl (33.0-37.0); MEAN PLATELET VOLUME 9.8 fl (9.6-12.3); MONO # 0.3 10*3/uL (0.1-1.0); MONO % 5.4 % (3.0-9.0); NEUT # 3.9 10*3/uL (2.3-7.9); NEUT % 71.8 % (47.0-73.0); PLATELET COUNT AUTOMATED 213 10*3/uL (130-400); RED BLOOD COUNT 3.56 10*6/uL (4.10-5.10); RED CELL DISTRI WIDTH 18.1 % (0-14.5); WHITE BLOOD COUNT 5.4 10*3/uL (4.8-10.8)
[2019-10-23 13:37] LABS: INTERNATIONAL NORM RATIO 1.2 (2.0-3.5)
[2019-10-23 14:03] VITALS: BP 126/65
--- NOTE | 2019-10-23 14:03 | NUR ---
THE PATIENT C/O MIDSTERNAL CHEST PAIN. DR LEVIN NOTIFIED AND ORDERED FENTANYL
[2019-10-23 14:05] LABS: ALBUMIN 3.5 gm/dl (3.1-4.5); ALKALINE PHOSPHATASE 86 U/L (45-117); BUN 14 mg/dl (7-24); CHLORIDE 113 mmol/L (98-107); POTASSIUM 3.7 mmol/L (3.5-5.1); SGOT/AST 12 IU/L (3-35); SGPT/ALT 16 U/L (12-78); SODIUM 142 mmol/L (136-145); TOTAL PROTEIN 6.8 gm/dL (6.4-8.2)
[2019-10-23 14:08] LABS: TROPONIN I < 0.015 ng/ml (<0.045)
--- NOTE | 2019-10-23 15:20 | NUR ---
THE PT WENT TO CT VIA CART
[2019-10-23 15:51] VITALS: BP 132/63
[2019-10-23 16:10] VITALS: BP 120/70
--- NOTE | 2019-10-23 16:13 | NUR ---
A 48, admitted to 5E, under the services of HIRO Bryson DO with a diagnosis of CHEST PAIN, RULE OUT ACUTE [place]. Chief complaint is ANGINA. Patient arrived via bed from ER. Monitor applied. Initial assessment completed. Vital signs taken and recorded. HIRO BRYSON DO notified of admission to the unit. Orders received. See assessment for past medical history, medications and allergies. Patient and/or family oriented to unit. [address] visitation policy reviewed. Clothing/patient valuable form completed. SUSIE HEREDIA
[2019-10-23] MEDS ORDERED: COUMADIN4 M2 PO (16:17)
--- NOTE | 2019-10-23 17:32 | NUR ---
CALL OUT TO DR BLACK'S ANSWERING SERVICE. AWAITING CALL BACK.
--- NOTE | 2019-10-23 17:52 | NUR ---
PT MEDICATED WITH ONE TIME DOSE OF FENTANYL. WILL MONITOR FOR EFFECTIVENESS.
--- NOTE | 2019-10-23 18:36 | NUR ---
PT REPORTS RELIEF OF PAIN. ONE TIME DOSE OF FANTANYL EFFECTIVE.
[2019-10-23 20:00] VITALS: BP 127/76
--- NOTE | 2019-10-23 20:08 | NUR ---
PATIENT MEDICATED WITH PHENERGAN FOR COMPLAINTS OF NAUSEA. WILL CONTINUE TO MONITOR. CALL LIGHT IN REACH.
[2019-10-24] VITALS: BP 123/85
--- NOTE | 2019-10-24 00:11 | NUR ---
PATIENT MEDICATED WITH MORPHINE FOR COMPLAINTS OF SUBSTERNAL CHEST PAIN AND ZOFRAN AND BENADRYL FOR COMPLAINTS OF NAUSEA AND ITCHING FROM THE ZOFRAN. WILL CONTINUE TO MONITOR. CALL LIGHT IN REACH.
--- NOTE | 2019-10-24 02:13 | NUR ---
PRN MEDICATIONS EFFECTIVE.
--- NOTE | 2019-10-24 06:18 | NUR ---
PATIENT MEDICATED WITH MORPHINE, BENADRYL AND ZOFRAN FOR COMPLAINTS OF NAUSEA AND SUBSTERNAL CHEST PAIN. WILL CONTINUE TO MONITOR.
[2019-10-24 06:33] LABS: BASO % 0.5 % (0.0-1.0); EOS # 0.2 10*3/uL (0.0-0.4); EOS % 3.7 % (1.0-4.0); HEMATOCRIT 31.6 % (37.0-47.0); LYMPH # 1.2 10*3/uL (1.3-4.4); LYMPH % 27.9 % (27.0-41.0); MEAN CELL VOLUME 87.3 fl (81.0-99.0); MEAN CORPUSCULAR HGB 25.4 pg (27.0-31.0); MEAN CORPUSCULAR HGB CONC 29.1 g/dl (33.0-37.0); MEAN PLATELET VOLUME 10.1 fl (9.6-12.3); MONO # 0.3 10*3/uL (0.1-1.0); NEUT # 2.6 10*3/uL (2.3-7.9); NEUT % 60.7 % (47.0-73.0); PLATELET COUNT AUTOMATED 203 10*3/uL (130-400); RED BLOOD COUNT 3.62 10*6/uL (4.10-5.10); RED CELL DISTRI WIDTH 17.9 % (0-14.5); WHITE BLOOD COUNT 4.3 10*3/uL (4.8-10.8)
[2019-10-24 07:02] LABS: ALBUMIN 3.4 gm/dl (3.1-4.5); ALKALINE PHOSPHATASE 82 U/L (45-117); BUN 13 mg/dl (7-24); CHLORIDE 108 mmol/L (98-107); CHOLESTEROL 115 mg/dL (<200); CREATININE 1.03 mg/dL (0.55-1.02); HDL CHOLESTEROL 34 mg/dl (40-60); LDL CHOLESTEROL 49 mg/dL (9-159); POTASSIUM 3.6 mmol/L (3.5-5.1); SGOT/AST 11 IU/L (3-35); SGPT/ALT 17 U/L (12-78); SODIUM 140 mmol/L (136-145); TOTAL PROTEIN 6.5 gm/dL (6.4-8.2); TRIGLYCERIDES 161 mg/dl (<150); VLDL CHOLESTEROL 32 mg/dL (6-40)
[2019-10-24 07:04] LABS: INTERNATIONAL NORM RATIO 1.2 (2.0-3.5)
[2019-10-24 08:00] VITALS: BP 112/60
--- NOTE | 2019-10-24 08:00 | NUR ---
IN TO ROOM. PATIENT AWAKE, ALERT AND ORIENTED. SITTING UP IN BED. NO STATED COMPLAINTS AT THIS TIME. PT EDUCATED ON NEW NPO STATUS FOR STRESS TEST. BED IN LOWEST LOCKED POSITION AND CALL LIGHT WITHIN REACH. WILL CONTINUE TO MONITOR.
[2019-10-24 08:12] LABS: VITAMIN D, 25-HYDROXY 19.3 ng/mL (30-100)
--- NOTE | 2019-10-24 11:30 | NUR ---
INFORMED CONSENT SIGNED FOR LEXISCAN STRESS TEST WITH DR. BLACK. RESTING EKG SINUS BRADYCARDIA, HR 64, BP 124/80. PULSE OX 98% AND LUNGS CLEAR. COMPLETED ONE MINUTE OF LEXISCAN PROTOCOL RECEIVING LEXISCAN 0.4MG OVER 10 SEC[address] NO ARRHYTHMIAS OR ST CHANGES NOTED. PT C/O SOB AND CHEST DISCOMFORT. LAST RECOVERY HR 84, BP 124/80. WAITING NUCLEAR SCANNING IN STABLE CONDITION.
--- NOTE | 2019-10-24 12:28 | NUR ---
Route Delivery Driver in to talk to patient. Patient states lives at HOME with SISTER. There are 8 steps in the home. Physician: LYNETTE Pharmacy: [facility] Home health services: NONE Patient's level of ADLs: INDEPENDENT Patient has working utilities: YES DME: NONE Follow-up physician's appointment after d/c: WILL BE MADE BY HOSPITALIST NURSE DIRECTOR ON DISCHARGE Does patient want to access PORTAL?: NO Discharge plan PT LIVES AT HOME WITH HER SISTER AND IS INDEPENDENT IN HER CARE. DENIES SHE WILL HAVE NEEDS ON DISCHARGE. PLANS TO RETURN HOME WHEN MEDICALLY STABLE. WILL CONTINUE TO FOLLOW. WILL HAVE A RIDE HOME.. MANAS TARANGO
--- NOTE | 2019-10-24 12:44 | NUR ---
PT COMPLAINS OF CHEST PAIN RATED AT A 9. PT REQUEST PRN MORPHINE AND ZOFRAN FOR PAIN AND NAUSEA. STATES ZOFRAN MAKES HER ITCHY SO PRN BENADRYL ADMINISTERED WELL. WILL MONITOR FOR EFFECTIVENESS.
[2019-10-24] MEDS ORDERED: Coumadin3 MG PO (13:15)
[2019-10-24] MEDS ORDERED: COUMADIN4 M2 PO (13:15)
[2019-10-24] MEDS ORDERED: ENOXAPARIN150 MG/1 M SC (13:15)
--- NOTE | 2019-10-24 15:50 | NUR ---
Discharge instructions reviewed with patient/family. Patient receptive and verbalizes understanding. Follow-up care arranged. Written instructions given to patient/family. NAKUL MONTELONGO
== END 2019-10-24 15:54 | disposition home or self-care (01) ==
LOC: ED 12:40 → EDHOLD 14:25 → 5E 14:32
PROVIDERS: Emergency Medicine; Internal Medicine; ADMIT Internal Medicine
DX: R07.2 Precordial pain (principal); R79.1 Abnormal coagulation profile; E87.8 Other disorders of electrolyte and fluid balance, not elsewhere classified; E83.51 Hypocalcemia; R79.82 Elevated C-reactive protein (CRP); R79.89 Other specified abnormal findings of blood chemistry; F41.9 Anxiety disorder, unspecified; E03.9 Hypothyroidism, unspecified; G43.909 Migraine, unspecified, not intractable, without status migrainosus; E66.01 Morbid (severe) obesity due to excess calories; G47.33 Obstructive sleep apnea (adult) (pediatric); I10 Essential (primary) hypertension; F32.9 Major depressive disorder, single episode, unspecified; D68.59 Other primary thrombophilia; Z86.711 Personal history of pulmonary embolism

== ENCOUNTER 2019-12-06 09:21 | Observation (INO) | payer OTHER ==
[~2019-12-06] VITALS: Ht 175.2 cm; Wt 145.3 kg
[~2019-12-06 09:21] MED LIST changes: +COUMADIN4 M2 PO; +Coumadin3 MG PO; +ENOXAPARIN150 MG/1 M SC
[2019-12-06 09:28] VITALS: BP 111/54
[2019-12-06 10:16] LABS: BASO % 0.5 % (0.0-1.0); EOS # 0.2 10*3/uL (0.0-0.4); EOS % 4.1 % (1.0-4.0); HEMATOCRIT 35.8 % (37.0-47.0); LYMPH % 25.6 % (27.0-41.0); MEAN CELL VOLUME 86.5 fl (81.0-99.0); MEAN CORPUSCULAR HGB 26.8 pg (27.0-31.0); MEAN PLATELET VOLUME 9.7 fl (9.6-12.3); MONO # 0.3 10*3/uL (0.1-1.0); MONO % 8.6 % (3.0-9.0); NEUT # 2.4 10*3/uL (2.3-7.9); NEUT % 60.9 % (47.0-73.0); PLATELET COUNT AUTOMATED 242 10*3/uL (130-400); RED BLOOD COUNT 4.14 10*6/uL (4.10-5.10); RED CELL DISTRI WIDTH 17.4 % (0-14.5); WHITE BLOOD COUNT 3.9 10*3/uL (4.8-10.8)
[2019-12-06 10:28] LABS: ACT PARTIAL THROMBO TIME 27.3 SECONDS (20.0-32.1)
[2019-12-06 10:35] LABS: ALBUMIN 3.5 gm/dl (3.1-4.5); ALKALINE PHOSPHATASE 101 U/L (45-117); BUN 10 mg/dl (7-24); CHLORIDE 111 mmol/L (98-107); CREATININE 0.86 mg/dL (0.55-1.02); POTASSIUM 3.6 mmol/L (3.5-5.1); SGOT/AST 13 IU/L (3-35); SGPT/ALT 23 U/L (12-78); SODIUM 142 mmol/L (136-145); TOTAL PROTEIN 6.8 gm/dL (6.4-8.2)
[2019-12-06 10:39] LABS: TROPONIN I < 0.015 ng/ml (<0.045)
[2019-12-06 10:46] VITALS: BP 100/50
[2019-12-06 12:00] VITALS: BP 104/64
[2019-12-06] MEDS ORDERED: WARFARIN SODIUM4 MG PO (12:14)
[2019-12-06 16:00] VITALS: BP 116/64
[2019-12-06 20:00] VITALS: BP 102/45
[2019-12-07] VITALS: BP 116/66
[2019-12-07 06:52] LABS: HEMATOCRIT 30.8 % (37.0-47.0); MEAN CORPUSCULAR HGB 26.9 pg (27.0-31.0); MEAN CORPUSCULAR HGB CONC 30.5 g/dl (33.0-37.0); MEAN PLATELET VOLUME 9.6 fl (9.6-12.3); PLATELET COUNT AUTOMATED 211 10*3/uL (130-400); RED CELL DISTRI WIDTH 17.4 % (0-14.5); WHITE BLOOD COUNT 3.7 10*3/uL (4.8-10.8)
[2019-12-07 07:12] LABS: BUN 14 mg/dl (7-24); CHLORIDE 110 mmol/L (98-107); CREATININE 0.99 mg/dL (0.55-1.02); POTASSIUM 3.8 mmol/L (3.5-5.1); SODIUM 142 mmol/L (136-145)
[2019-12-07 07:21] LABS: OVALOCYTES FEW; PLATELET SUFFICIENCY NORMAL (NORMAL); TOTAL CELLS COUNTED 100 #CELLS
[2019-12-07 12:00] VITALS: BP 131/80
[2019-12-07 16:00] VITALS: BP 120/71
[2019-12-07 20:00] VITALS: BP 128/74
[2019-12-08] VITALS: BP 137/75
[2019-12-08 06:38] LABS: BASO % 0.4 % (0.0-1.0); EOS # 0.2 10*3/uL (0.0-0.4); EOS % 4.5 % (1.0-4.0); LYMPH # 1.1 10*3/uL (1.3-4.4); LYMPH % 22.7 % (27.0-41.0); MEAN CELL VOLUME 87.4 fl (81.0-99.0); MEAN CORPUSCULAR HGB CONC 30.9 g/dl (33.0-37.0); MONO # 0.3 10*3/uL (0.1-1.0); MONO % 6.9 % (3.0-9.0); NEUT # 3.2 10*3/uL (2.3-7.9); NEUT % 65.3 % (47.0-73.0); PLATELET COUNT AUTOMATED 210 10*3/uL (130-400); RED BLOOD COUNT 3.66 10*6/uL (4.10-5.10); WHITE BLOOD COUNT 4.9 10*3/uL (4.8-10.8)
[2019-12-08 06:54] LABS: ALBUMIN 3.2 gm/dl (3.1-4.5); CREATININE 1.19 mg/dL (0.55-1.02); POTASSIUM 3.7 mmol/L (3.5-5.1); TOTAL PROTEIN 6.6 gm/dL (6.4-8.2)
[2019-12-08] MEDS ORDERED: PEPCID20 MG PO (11:05)
[2019-12-08] MEDS ORDERED: PHENERGAN25 M3 PO (11:05)
[2019-12-08] MEDS ORDERED: NORCO 5-325 TA1 EACH PO (11:05)
== END 2019-12-08 14:15 | disposition home or self-care (01) ==
LOC: ED 09:21 → EDHOLD 10:46 → 4E 11:03
PROVIDERS: Internal Medicine; Student in an Organized Health Care Education/Training Program; ADMIT Emergency Medicine
DX: R07.89 Other chest pain (principal); I25.2 Old myocardial infarction; E87.8 Other disorders of electrolyte and fluid balance, not elsewhere classified; R11.2 Nausea with vomiting, unspecified; E66.01 Morbid (severe) obesity due to excess calories; F41.9 Anxiety disorder, unspecified; R00.1 Bradycardia, unspecified; R73.9 Hyperglycemia, unspecified; D72.819 Decreased white blood cell count, unspecified; Z51.81 Encounter for therapeutic drug level monitoring

== ENCOUNTER 2021-06-22 10:39 | Emergency (ER) | payer OTHER ==
[~2021-06-22] VITALS: Ht 172.7 cm; Wt 122.5 kg
[~2021-06-22 10:39] MED LIST changes: +PEPCID20 MG PO; +PHENERGAN25 M3 PO
[2021-06-22 11:16] LABS: BILIRUBIN Negative (Negative); BLOOD Negative (Negative); CLARITY Clear (Clear); COLOR Yellow (Yellow); GLUCOSE Negative (Negative); KETONE Negative (Negative); LEUKO ESTERASE 1+ (Negative); NITRITE Negative (Negative)
[2021-06-22 11:25] LABS: BACTERIA 1+; WBC 16-20 wbc/hpf (0-5)
[2021-06-22 12:06] LABS: BASO % 0.2 % (0.0-1.0); EOS # 0.2 10*3/uL (0.0-0.4); EOS % 3.5 % (1.0-4.0); HEMATOCRIT 34.6 % (37.0-47.0); LYMPH # 1.1 10*3/uL (1.3-4.4); LYMPH % 19.1 % (27.0-41.0); MEAN CELL VOLUME 95.3 fl (81.0-99.0); MEAN CORPUSCULAR HGB 31.7 pg (27.0-31.0); MEAN CORPUSCULAR HGB CONC 33.2 g/dl (33.0-37.0); MEAN PLATELET VOLUME 9.9 fl (9.6-12.3); MONO # 0.4 10*3/uL (0.1-1.0); MONO % 6.4 % (3.0-9.0); NEUT # 4.1 10*3/uL (2.3-7.9); NEUT % 70.6 % (47.0-73.0); PLATELET COUNT AUTOMATED 178 10*3/uL (130-400); RED BLOOD COUNT 3.63 10*6/uL (4.10-5.10); RED CELL DISTRI WIDTH 12.3 % (0-14.5); WHITE BLOOD COUNT 5.8 10*3/uL (4.8-10.8)
[2021-06-22 12:23] LABS: ALBUMIN 2.9 gm/dl (3.1-4.5); ALKALINE PHOSPHATASE 124 U/L (45-117); BUN 15 mg/dl (7-24); CHLORIDE 115 mmol/L (98-107); CREATININE 0.76 mg/dL (0.55-1.02); LIPASE 137 U/L (73-393); POTASSIUM 4.1 mmol/L (3.5-5.1); SGOT/AST 11 IU/L (3-35); SGPT/ALT 31 U/L (12-78); SODIUM 142 mmol/L (136-145); TOTAL PROTEIN 6.1 gm/dL (6.4-8.2)
[2021-06-22] MEDS ORDERED: ZOFRAN4 MG PO (14:41)
[2021-06-22] MEDS ORDERED: TYLENOL325 M1 PO (14:41)
[2021-06-22] MEDS ORDERED: SEPTDS PO (14:41)
== END 2021-06-22 14:42 | disposition home or self-care (01) ==
LOC: ED 10:39
PROVIDERS: Emergency Medicine
DX: N39.0 Urinary tract infection, site not specified (principal); N23 Unspecified renal colic; I25.10 Atherosclerotic heart disease of native coronary artery without angina pectoris; I10 Essential (primary) hypertension; E03.9 Hypothyroidism, unspecified; E66.01 Morbid (severe) obesity due to excess calories; G40.909 Epilepsy, unspecified, not intractable, without status epilepticus; I25.2 Old myocardial infarction; Z88.0 Allergy status to penicillin; Z88.8 Allergy status to other drugs, medicaments and biological substances; Z91.013 Allergy to seafood; Z79.899 Other long term (current) drug therapy; Z79.82 Long term (current) use of aspirin; Z86.73 Personal history of transient ischemic attack (TIA), and cerebral infarction without residual deficits; Z90.49 Acquired absence of other specified parts of digestive tract; Z98.890 Other specified postprocedural states; Z90.710 Acquired absence of both cervix and uterus

== ENCOUNTER 2022-02-17 12:57 | Inpatient (IN) | payer OTHER ==
[~2022-02-17] VITALS: Ht 170.1 cm; Wt 131.0 kg
[~2022-02-17 12:57] MED LIST changes: +SEPTDS PO; +TYLENOL325 M1 PO; +ZOFRAN4 MG PO
[2022-02-17 12:59] VITALS: BP 104/66
[2022-02-17 15:36] LABS: BASO % 0.2 % (0.0-1.0); EOS # 0.2 10*3/uL (0.0-0.4); EOS % 2.9 % (1.0-4.0); HEMATOCRIT 37.6 % (37.0-47.0); LYMPH # 1.2 10*3/uL (1.3-4.4); MEAN CELL VOLUME 94.2 fl (81.0-99.0); MEAN CORPUSCULAR HGB 31.1 pg (27.0-31.0); MEAN PLATELET VOLUME 9.8 fl (9.6-12.3); MONO # 0.4 10*3/uL (0.1-1.0); MONO % 6.7 % (3.0-9.0); NEUT # 4.1 10*3/uL (2.3-7.9); PLATELET COUNT AUTOMATED 179 10*3/uL (130-400); RED BLOOD COUNT 3.99 10*6/uL (4.10-5.10); RED CELL DISTRI WIDTH 12.9 % (0-14.5); WHITE BLOOD COUNT 5.8 10*3/uL (4.8-10.8)
[2022-02-17 15:53] LABS: ACT PARTIAL THROMBO TIME 47.3 SECONDS (20.0-32.1)
[2022-02-17 15:55] LABS: ALKALINE PHOSPHATASE 110 U/L (45-117); BUN 15 mg/dl (7-24); CHLORIDE 116 mmol/L (98-107); CREATININE 0.78 mg/dL (0.55-1.02); POTASSIUM 3.5 mmol/L (3.5-5.1); SGOT/AST 20 IU/L (3-35); SGPT/ALT 35 U/L (12-78); SODIUM 145 mmol/L (136-145); TOTAL PROTEIN 6.4 gm/dL (6.4-8.2)
[2022-02-17 17:40] VITALS: BP 109/70
[2022-02-17 19:15] VITALS: BP 104/51
[2022-02-17] MEDS ORDERED: ELIQUIS5 M1 PO (19:42)
[2022-02-18] VITALS: BP 95/60
[2022-02-18 03:38] LABS: BASO % 0.4 % (0.0-1.0); EOS # 0.2 10*3/uL (0.0-0.4); EOS % 4.2 % (1.0-4.0); LYMPH # 1.4 10*3/uL (1.3-4.4); LYMPH % 27.2 % (27.0-41.0); MEAN CELL VOLUME 96.4 fl (81.0-99.0); MEAN CORPUSCULAR HGB 31.8 pg (27.0-31.0); MEAN PLATELET VOLUME 9.8 fl (9.6-12.3); MONO # 0.4 10*3/uL (0.1-1.0); MONO % 8.4 % (3.0-9.0); NEUT # 3.1 10*3/uL (2.3-7.9); NEUT % 59.6 % (47.0-73.0); PLATELET COUNT AUTOMATED 162 10*3/uL (130-400); RED BLOOD COUNT 3.84 10*6/uL (4.10-5.10); WHITE BLOOD COUNT 5.2 10*3/uL (4.8-10.8)
[2022-02-18 03:56] LABS: ACT PARTIAL THROMBO TIME 34.6 SECONDS (20.0-32.1)
[2022-02-18 04:02] LABS: ALKALINE PHOSPHATASE 102 U/L (45-117); BUN 15 mg/dl (7-24); CHLORIDE 115 mmol/L (98-107); CHOLESTEROL 129 mg/dL (<200); CREATININE 0.84 mg/dL (0.55-1.02); FREE T4 1.07 ng/dl (0.76-1.46); LDL CHOLESTEROL 67 mg/dL (9-159); POTASSIUM 3.4 mmol/L (3.5-5.1); SGOT/AST 18 IU/L (3-35); SGPT/ALT 33 U/L (12-78); SODIUM 143 mmol/L (136-145); TRIGLYCERIDES 135 mg/dl (<150)
[2022-02-18 04:07] LABS: THYROID STIM HORMONE (HS) 0.056 uIU/ml (0.358-4.75)
[2022-02-18 09:00] LABS: VITAMIN D, 25-HYDROXY 22.4 ng/mL (30-100)
[2022-02-18 10:53] VITALS: BP 100/51
[2022-02-18 16:45] VITALS: BP 94/55
[2022-02-18 20:57] VITALS: BP 106/67
[2022-02-18 21:45] VITALS: BP 104/64
[2022-02-19] VITALS: BP 109/66
[2022-02-19 04:04] VITALS: BP 110/70
[2022-02-19 07:04] LABS: BUN 14 mg/dl (7-24); CHLORIDE 115 mmol/L (98-107); CREATININE 0.98 mg/dL (0.55-1.02); POTASSIUM 3.9 mmol/L (3.5-5.1); SODIUM 144 mmol/L (136-145)
[2022-02-19 08:00] VITALS: BP 97/51
[2022-02-19 12:00] VITALS: BP 111/72
[2022-02-19 16:00] VITALS: BP 117/62
[2022-02-19 20:00] VITALS: BP 117/68
[2022-02-20] VITALS: BP 106/67
[2022-02-20 05:23] LABS: ALKALINE PHOSPHATASE 124 U/L (45-117); BUN 14 mg/dl (7-24); CHLORIDE 111 mmol/L (98-107); CREATININE 0.99 mg/dL (0.55-1.02); POTASSIUM 3.8 mmol/L (3.5-5.1); SGOT/AST 19 IU/L (3-35); SGPT/ALT 41 U/L (12-78); SODIUM 143 mmol/L (136-145)
[2022-02-20 06:10] LABS: BASO % 0.3 % (0.0-1.0); EOS # 0.3 10*3/uL (0.0-0.4); EOS % 4.4 % (1.0-4.0); HEMATOCRIT 37.6 % (37.0-47.0); LYMPH # 1.3 10*3/uL (1.3-4.4); LYMPH % 22.5 % (27.0-41.0); MEAN CELL VOLUME 97.2 fl (81.0-99.0); MEAN CORPUSCULAR HGB 31.8 pg (27.0-31.0); MEAN CORPUSCULAR HGB CONC 32.7 g/dl (33.0-37.0); MEAN PLATELET VOLUME 10.3 fl (9.6-12.3); MONO # 0.5 10*3/uL (0.1-1.0); MONO % 7.6 % (3.0-9.0); NEUT # 3.9 10*3/uL (2.3-7.9); PLATELET COUNT AUTOMATED 178 10*3/uL (130-400); RED BLOOD COUNT 3.87 10*6/uL (4.10-5.10); RED CELL DISTRI WIDTH 12.4 % (0-14.5); WHITE BLOOD COUNT 5.9 10*3/uL (4.8-10.8)
[2022-02-20 08:00] VITALS: BP 117/67
[2022-02-20 12:00] VITALS: BP 115/65
[2022-02-20 16:00] VITALS: BP 110/64
[2022-02-20 20:00] VITALS: BP 104/60; BP 97/61
[2022-02-21] VITALS: BP 122/67
[2022-02-21 06:54] LABS: BASO % 0.4 % (0.0-1.0); EOS # 0.2 10*3/uL (0.0-0.4); EOS % 5.2 % (1.0-4.0); HEMATOCRIT 37.5 % (37.0-47.0); LYMPH # 1.2 10*3/uL (1.3-4.4); LYMPH % 25.3 % (27.0-41.0); MEAN CELL VOLUME 95.7 fl (81.0-99.0); MEAN CORPUSCULAR HGB 31.4 pg (27.0-31.0); MEAN CORPUSCULAR HGB CONC 32.8 g/dl (33.0-37.0); MEAN PLATELET VOLUME 9.9 fl (9.6-12.3); MONO # 0.4 10*3/uL (0.1-1.0); MONO % 9.2 % (3.0-9.0); NEUT # 2.8 10*3/uL (2.3-7.9); NEUT % 59.7 % (47.0-73.0); PLATELET COUNT AUTOMATED 176 10*3/uL (130-400); RED BLOOD COUNT 3.92 10*6/uL (4.10-5.10); RED CELL DISTRI WIDTH 12.4 % (0-14.5); WHITE BLOOD COUNT 4.7 10*3/uL (4.8-10.8)
[2022-02-21 07:08] LABS: BUN 13 mg/dl (7-24); CHLORIDE 110 mmol/L (98-107); CREATININE 0.94 mg/dL (0.55-1.02); SODIUM 142 mmol/L (136-145)
[2022-02-21 08:00] VITALS: BP 112/64
[2022-02-21 12:00] VITALS: BP 103/53
[2022-02-21 15:08] VITALS: BP 100/57
[2022-02-21 20:00] VITALS: BP 98/59
[2022-02-22] VITALS: BP 101/61
[2022-02-22 08:00] VITALS: BP 120/70
[2022-02-22 12:00] VITALS: BP 127/75
[2022-02-22 16:00] VITALS: BP 132/67
[2022-02-22 20:00] VITALS: BP 100/51
[2022-02-23] VITALS: BP 101/60
== END 2022-02-23 05:22 | disposition short-term general hospital (02) | DRG 198 ==
LOC: ED 12:57 → 5E 17:34 → EDHOLD 17:34 → 5E 02-18 20:43
PROVIDERS: Emergency Medicine; Internal Medicine; Student in an Organized Health Care Education/Training Program; ADMIT Family Medicine; ATTEND Family Medicine
PROC: 4A02XM4 Measurement of Cardiac Total Activity, External Approach (ICD-10-PCS; principal; 2022-02-21)
PROC: 3E073KZ Introduction of Other Diagnostic Substance into Coronary Artery, Percutaneous Approach (ICD-10-PCS; 2022-02-21)
DX: R07.89 Other chest pain (principal); I25.10 Atherosclerotic heart disease of native coronary artery without angina pectoris; E03.9 Hypothyroidism, unspecified; E83.51 Hypocalcemia; E66.01 Morbid (severe) obesity due to excess calories; F41.1 Generalized anxiety disorder; E87.8 Other disorders of electrolyte and fluid balance, not elsewhere classified; G43.909 Migraine, unspecified, not intractable, without status migrainosus; I10 Essential (primary) hypertension; F32.A Depression, unspecified; G47.33 Obstructive sleep apnea (adult) (pediatric); R73.9 Hyperglycemia, unspecified; I25.9 Chronic ischemic heart disease, unspecified; Z88.0 Allergy status to penicillin; Z88.2 Allergy status to sulfonamides; Z88.8 Allergy status to other drugs, medicaments and biological substances; Z90.710 Acquired absence of both cervix and uterus; Z98.891 History of uterine scar from previous surgery; Z90.49 Acquired absence of other specified parts of digestive tract; Z90.721 Acquired absence of ovaries, unilateral; Z83.3 Family history of diabetes mellitus; Z82.49 Family history of ischemic heart disease and other diseases of the circulatory system; Z79.82 Long term (current) use of aspirin; Z79.899 Other long term (current) drug therapy; I25.2 Old myocardial infarction; Z86.711 Personal history of pulmonary embolism; Z86.718 Personal history of other venous thrombosis and embolism; Z68.41 Body mass index [BMI] 40.0-44.9, adult

== ENCOUNTER 2025-03-17 09:01 | Emergency (ER) | payer OTHER ==
[~2025-03-17] VITALS: Ht 172.7 cm; Wt 145.1 kg
[~2025-03-17 09:01] MED LIST changes: +ELIQUIS5 M1 PO
[2025-03-17] MEDS ORDERED: ASPIRIN, CHEWABLE 81 MG TAB PO ONE (09:45)
[2025-03-17] MEDS ORDERED: diphenhydrAMINE hydrochloride 50 MG/ML VIAL IV ONE (09:45)
[2025-03-17] MEDS ORDERED: Ondansetron Hydrochloride 4 MG/2 ML VIAL IV ONE (09:45)
[2025-03-17 09:57] LABS: BASO # 0.0 10*3/uL (0.0-0.1); BASO % 0.4 % (0.0-1.0); EOS # 0.2 10*3/uL (0.0-0.4); EOS % 2.8 % (1.0-4.0); MEAN CELL VOLUME 95.8 fl (81.0-99.0); MEAN CORPUSCULAR HGB 30.5 pg (27.0-31.0); MEAN PLATELET VOLUME 10.0 fl (9.6-12.3); MONO # 0.4 10*3/uL (0.1-1.0); MONO % 6.7 % (3.0-9.0); NEUT # 3.9 10*3/uL (2.3-7.9); NEUT % 72.0 % (47.0-73.0); NUCLEATED RED BLOOD CELL 0.0 % (0.0-0.0); NUCLEATED RED BLOOD CELL 0.0 10*3/uL (0.0-0.0); PLATELET COUNT AUTOMATED 195 10*3/uL (130-400); RED CELL DISTRI WIDTH 13.0 % (0-14.5)
[2025-03-17 10:14] LABS: BUN 17 mg/dl (9-23)
== END 2025-03-17 13:09 | disposition home or self-care (01) ==
LOC: ED 09:01
PROVIDERS: Student in an Organized Health Care Education/Training Program
DX: R07.89 Other chest pain (principal); F41.9 Anxiety disorder, unspecified; F32.A Depression, unspecified; I10 Essential (primary) hypertension; I25.10 Atherosclerotic heart disease of native coronary artery without angina pectoris; Z90.49 Acquired absence of other specified parts of digestive tract; Z98.890 Other specified postprocedural states; Z90.710 Acquired absence of both cervix and uterus; Z88.0 Allergy status to penicillin; Z88.1 Allergy status to other antibiotic agents; Z88.5 Allergy status to narcotic agent; Z88.8 Allergy status to other drugs, medicaments and biological substances; Z91.013 Allergy to seafood